=== PATIENT | female | born 1990 | race Caucasian/White ===

== ENCOUNTER → 2017-01-11 | Outpatient (CLI) | payer OTHER ==
[2017-01-11 15:58] LABS: HEMATOCRIT 38.3 % (36.0-47.0); HEMOGLOBIN 12.9 g/dL (12.0-15.5); HGB HCT DIFFERENCE 0.4; MEAN CORPUSCULAR HEMOGLOBIN 32.2 pg (27.0-33.4); MEAN CORPUSCULAR HGB CONC 33.7 g/dL (32.0-36.0); MEAN CORPUSCULAR VOLUME 96 fl (80-97); RED BLOOD COUNT 4.01 10^6/uL (3.72-5.28); RED CELL DISTRIBUTION WIDTH 13.5 % (11.5-14.0); WHITE BLOOD COUNT 6.2 10^3/uL (4.0-10.5)
[2017-01-11 16:25] LABS: ALANINE AMINOTRANSFERASE 15 U/L (9-52); ALBUMIN 4.4 g/dL (3.5-5.0); ALKALINE PHOSPHATASE 56 U/L (38-126); ANION GAP 9 (5-19); ASPARTATE AMINO TRANSFERASE 17 U/L (14-36); BILIRUBIN,TOTAL 0.7 mg/dL (0.2-1.3); BLOOD UREA NITROGEN 12 mg/dL (7-20); CARBON DIOXIDE 31 mmol/L (22-30); CHLORIDE 100 mmol/L (98-107); CREATININE RESULT 0.64 mg/dL (0.52-1.25); GLUCOSE 102 mg/dL (75-110); LIPASE 48.1 U/L (23-300); TOTAL PROTEIN 7.5 g/dL (6.3-8.2)
== END ==
LOC: OD 14:23
PROVIDERS: ATTEND Obstetrics & Gynecology
DX: R19.7 Diarrhea, unspecified (principal); R10.9 Unspecified abdominal pain
CPT/HCPCS: 36415; 80053; 83690; 85027; 86677; 87045; 87205

== ENCOUNTER 2017-05-09 05:50 | Day surgery (SDC) | payer OTHER ==
[2017-05-03 10:32] LABS: HEMOGLOBIN 13.5 g/dL (12.0-15.5); HGB HCT DIFFERENCE -0.5; MEAN CORPUSCULAR HEMOGLOBIN 32.5 pg (27.0-33.4); MEAN CORPUSCULAR HGB CONC 32.9 g/dL (32.0-36.0); MEAN CORPUSCULAR VOLUME 99 fl (80-97); RED BLOOD COUNT 4.15 10^6/uL (3.72-5.28); RED CELL DISTRIBUTION WIDTH 13.5 % (11.5-14.0); WHITE BLOOD COUNT 8.5 10^3/uL (4.0-10.5)
[2017-05-03 10:44] LABS: APPEARANCE,URINE CLEAR; BILIRUBIN,URINE NEGATIVE (NEGATIVE); GLUCOSE, URINE NEGATIVE (NEGATIVE); KETONES,URINE NEGATIVE (NEGATIVE); LEUKOCYTE ESTERASE,URINE NEGATIVE (NEGATIVE); NITRITE,URINE NEGATIVE (NEGATIVE); PROTEIN,URINE NEGATIVE (NEGATIVE); URINE SPECIFIC GRAVITY 1.017; UROBILINOGEN,URINE NEGATIVE mg/dL (<2.0)
[2017-05-03 11:02] LABS: ALANINE AMINOTRANSFERASE 15 U/L (9-52); ALBUMIN 4.8 g/dL (3.5-5.0); ALKALINE PHOSPHATASE 60 U/L (38-126); ANION GAP 11 (5-19); ASPARTATE AMINO TRANSFERASE 22 U/L (14-36); BILIRUBIN,DIRECT 0.3 mg/dL (0.0-0.4); BILIRUBIN,TOTAL 0.5 mg/dL (0.2-1.3); BLOOD UREA NITROGEN 11 mg/dL (7-20); CALCIUM 9.9 mg/dL (8.4-10.2); CARBON DIOXIDE 28 mmol/L (22-30); CHLORIDE 100 mmol/L (98-107); CREATININE RESULT 0.68 mg/dL (0.52-1.25); GLUCOSE 75 mg/dL (75-110); POTASSIUM 4.2 mmol/L (3.6-5.0); SODIUM 138.6 mmol/L (137-145); TOTAL PROTEIN 8.5 g/dL (6.3-8.2)
[~2017-05-09 05:50] MED LIST: LACTATED RINGERS 1000 ML IV PRN; LIDOCAINE 0.5% INJ-PF (5 MG/ML) 50 ML SDV SUBCUT PRN
[2017-05-09] MEDS ORDERED: BUPIVACAINE HCL 0.25 % INJ/PF (2.5 MG/1 ML) 30 ML VIAL ONE (06:51)
[2017-05-09] MEDS ORDERED: FENTANYL CITRATE INJ/PF 100 MCG/2 ML AMPUL ONE (07:01)
[2017-05-09] MEDS ORDERED: IBUPROFEN INJ 800 MG/8 ML VIAL IV ONE (07:01)
[2017-05-09] MEDS ORDERED: PROPOFOL INJ 200 MG/20 ML VIAL IV ONE ×2 (07:01→09:07)
[2017-05-09] MEDS ORDERED: DEXAMETHASONE SOD PHOSPHATE INJ 4 MG/1 ML VIAL ONE (07:01)
[2017-05-09] MEDS ORDERED: LIDOCAINE 2% INJ-PF (20 MG/ML) 10 ML AMPUL ONE (07:01)
[2017-05-09] MEDS ORDERED: ONDANSETRON HCL INJ/PF 4 MG/2 ML SDV ONE (07:01)
[2017-05-09] MEDS ORDERED: MIDAZOLAM 2 MG/2 ML INJ ONE (07:08)
[2017-05-09] MEDS ORDERED: SCOPOLAMINE HYDROBROMIDE 1.5 MG PATCH.TD72 ONE (07:33)
[2017-05-09] MEDS ORDERED: METHYLENE BLUE 50 MG/10 ML AMPULE ONE (07:35)
[2017-05-09] MEDS ORDERED: HYDROMORPHONE HCL INJ/PF 2 MG/ML AMPULE ONE (07:41)
[2017-05-09] MEDS ORDERED: FENTANYL CITRATE INJ/PF 100 MCG/2 ML AMPUL IV PRN ×3 (08:19)
[2017-05-09] MEDS ORDERED: ONDANSETRON HCL INJ/PF 4 MG/2 ML SDV IV PRN (08:19)
[2017-05-09] MEDS ORDERED: MEPERIDINE HCL/PF INJ 25 MG/1 ML DISP.SYRIN IV PRN (08:19)
[2017-05-09] MEDS ORDERED: DIPHENHYDRAMINE HCL 50 MG/ML VIAL IV PRN (08:19)
[2017-05-09] MEDS ORDERED: PROMETHAZINE HCL INJ 25 MG/1 ML VIAL IV PRN ×3 (08:19→09:07)
[2017-05-09] MEDS ORDERED: OXYCODONE-ACETAMINOPHEN 5-325 MG TABLET PO PRN ×2 (09:07)
[2017-05-09] MEDS ORDERED: ACETAMINOPHEN 100 ML IV ONE (09:09)
--- NOTE | 2017-05-09 09:43 | OPERATIVE REPORT E ---
Operative Report NAME: LORRI WOOD : 1990 AGE: 26Y DATE OF SURGERY: 05/09/2017 ROOM: PREOPERATIVE DIAGNOSIS: Pelvic pain. POSTOPERATIVE DIAGNOSES: 1. Adenomyosis. 2. Left ovarian cyst. OPERATION: 1. D and C. 2. Laparoscopy. 3. Chromopertubation. SURGEON: ELIZABETH ORANTES M.D. ANESTHESIA: General and 0.25% Marcaine. ESTIMATED BLOOD LOSS: Negligible. PERTINENT HISTORY AND OPERATIVE FINDINGS: This is a 26-year-old who had been having increasing amounts of pelvic pain. Also was interested in ultimately becoming . She wanted to have further evaluation of this pain. We had done in office workup and did not have an answer for her. At the time of surgery, the vagina and vulva appeared to be normal. The cervix was normal. The uterus was enlarged to about 8 weeks size and boggy. The tubes appeared to be normal. There was a small simple cyst on the left ovary. Right ovary was normal. The appendix appeared to be normal. The liver had a little bit of fibrotic change but was otherwise normal. The gallbladder appeared to be normal. The rest of the bowel appeared to be normal. No signs of endometriosis. OPERATIVE PROCEDURE: The patient was brought into the OR, placed on the table in a supine position, and inducted under general anesthesia. Following this she was repositioned in a dorsal lithotomy position, prepped and draped in a sterile fashion. The bladder was drained of about 50 mL of clear yellow urine and a pelvic under anesthesia was performed. The weighted speculum was inserted. The cervix was grasped on its anterior lip. It was sounded 8 cm, dilated with a Carbone dilator, and curetted with a small sharp curette. A HUMI chromopertubation manipulator was then gently inserted through the cervix into the uterus. The bag was insufflated and the other equipment was removed. Attention was turned toward the abdominal wall. A Veress needle was introduced umbilically and carried through the various layers until the abdominal cavity was entered. Upon entering the abdominal cavity, the CO2 was hooked up after testing with a small drop of saline to make sure we are in the peritoneal cavity. The opening pressure was 4 cm of water. We then insufflated to 3.4 L of CO2 to at pressure of 15 cm of water. The Veress needle was removed and a small incision was made infraumbilically through the incision. A trocar and sleeve were inserted. The trocar was removed and through a sleeve, a laparoscope was inserted. A second incision was then made suprapubically through the incision. A trocar and sleeve were inserted. The trocar was removed and the through the sleeve a probe was inserted. Contents of the pelvis were then video recorded. Having done this, the chromopertubation was carried out. There was good flow on the right side. The left side we could not get to flow, however, the tube did look to be normal. There was a small agitated simple cyst on the left ovary. We sucked out the excess chromopertubation fluid and we did a scan of the rest of the pelvis. The appendix appeared to be normal. The bowel appeared to be normal. There were no signs of endometriosis. There was some bogginess to the uterus suggestive of adenomyosis. The liver had some scarring on it. Gallbladder looked otherwise normal. The bowel appeared to be basically normal. The lower sleeve was removed. There was no evidence of active bleeding. The CO2 was allowed to escape. The upper sleeve was removed. The patient then had 0.25% Marcaine injected into both incisions. The fascia was closed of both incisions with 0 Vicryl interrupted. Skin edges in the subumbilical incision were closed with subcuticular 4-0 Prolene. The suprapubic incision was closed with interrupted using 4-0 Prolene. Attention was then turned back down to the pelvis. The HUMI chromopertubation catheter was removed. There was no evidence of active bleeding. The anesthesia was discontinued. The patient placed back in the supine position and transferred to the recovery room. She tolerated procedure well. Estimated blood loss was negligible. DICTATING PHYSICIAN: ELIZABETH ORANTES M.D. [id number] PHY#: [id number] ID: [id number] JOB#: [id number] ACCT: [id number] cc:ELIZABETH ORANTES M.D. >
[2017-05-09] MEDS ORDERED: NITROFURANTOIN MONOHYD/M-CRYST 100 MG CAPSULE PO ONE (10:00)
[2017-05-09 11:02] VITALS: BP 115/49
[2017-05-09] MEDS ORDERED: METOCLOPRAMIDE HCL INJ/PF 10 MG/2 ML SDV ONE (14:35)
[2017-05-09] MEDS ORDERED: ROCURONIUM BROMIDE INJ 50 MG/5 ML VIAL IV ONE (14:35)
[2017-05-09] MEDS ORDERED: GLYCOPYRROLATE INJ 0.4 MG/2 ML VIAL ONE (14:35)
[2017-05-09] MEDS ORDERED: SUCCINYLCHOLINE CHLORIDE INJ 200 MG/10 ML VIAL ONE (14:35)
[2017-05-09] MEDS ORDERED: NEOSTIGMINE METHYLSULFATE 10 MG/10 ML VIAL ONE (14:35)
== END 2017-05-09 10:55 | disposition home or self-care (01) ==
LOC: OROUT 05:50
PROVIDERS: ATTEND Obstetrics & Gynecology
PROC: 0UJ84ZZ Inspection of Fallopian Tube, Percutaneous Endoscopic Approach (ICD-10-PCS; 2017-05-09)
PROC: 0UDB7ZX Extraction of Endometrium, Via Natural or Artificial Opening, Diagnostic (ICD-10-PCS; 2017-05-09)
PROC: 3E0P3KZ Introduction of Other Diagnostic Substance into Female Reproductive, Percutaneous Approach (ICD-10-PCS; principal; 2017-05-09 07:30)
DX: N80.0 Endometriosis of uterus (principal); N83.202 Unspecified ovarian cyst, left side; R10.2 Pelvic and perineal pain; Z79.899 Other long term (current) drug therapy
CPT/HCPCS: 36415; 87205; 87070; 85027; 81025; 87075; 80053; 81001; 88305 ×2; 49320; 58350; 58120; J2250; J3490 ×2; J1100; J3010; J2765; J1170; J0330; J2405; J2704; J0131; J8499; J1741; 840; Q9968